=== PATIENT | female | born 1940 | race Caucasian/White ===

== ENCOUNTER 2016-10-17 04:56 | Emergency (ER) | payer OTHER, MEDICARE ==
[~2016-10-17] VITALS: Ht 152.4 cm; Wt 59.0 kg
[~2016-10-17 04:56] MED LIST: Ecotrin PO; FOSAMAX 70MG70 MG PO; NITROSTAT0.4 MG SL; Robitussin Dm PO; TENORMIN25 MG PO; VITAMIN D 90 MG1 TAB PO
--- NOTE | 2016-10-17 05:10 | ED CARDIAC/CP/PALPITATIONS ---
See Addendum History of Present Illness General Chief Complaint: Chest Pain Stated Complaint: BIBA C/O CHEST PAIN Source: patient Exam Limitations: no limitations Vital Signs & Intake/Output Vital Signs & Intake/Output Vital Signs Date Time Temp Pulse Resp B/P B/P Pulse O2 O2 Flow FiO2 Mean Ox Delivery Rate 10/17 0806 97.5 59 18 126/71 94 Room Air 10/17 0602 62 16 125/75 98 Room Air Room Air 10/17 0459 97.9 71 17 165/75 100 Allergies Coded Allergies: NO KNOWN ALLERGIES (03/11/14) Reconcile Medications Alendronate Sodium (Fosamax 70MG) 70 MG TAB 1 TAB PO QW DIRECTED (Reported ) in the morning, at least 30 minutes before the first food, beverage, or medication of the day Atenolol (Tenormin) 25 MG TABLET 1 TAB PO DAILY HTN (Reported) CHOLECALCIFEROL (VITAMIN D3) (Vitamin D 90 MG-2000 Iu) 2,000 UNIT TABLET 1 TAB PO DAILY VITAMIN HEALTH (Reported) [Ecotrin] 81 MG PO DAILY HEART HEALTH Nitroglycerin (Nitrostat) 0.4 MG TAB.SUBL 1 TAB SL Q5 MINUTESX2 PRN CHEST PAIN PUT 1 TAB UNDER YOUR TONGUE. IF CHEST PAIN DOESN'T RESOLVE AFTER 5 MINUTES USE ANOTHER TAB. THEN CALL HOSPITAL. Triage Nurses Notes Reviewed? yes Onset: Gradual Duration: hour(s): Timing: recent history Quality/Severity: moderate Location: central Radiation: no radiation Activities at Onset: none Prior Chest Pain/Card Workup: stress test Modifying Factors: Improves With: nitroglycerin. Nitro Today/Relief: 0.4 mg x 1, provided at home, complete relief Aspirin Today: no aspirin today Associated Symptoms: chest pressure, rash HPI: 76 yo woman h/o coronary artery disease (no [place]), h/o anxiety, presents with chest pressure. She notes that she felt sub sternal chest pressure, without diaphoresis, radiation, or syncopal symptoms approximately 1 hour prior to presentation. She took a nitro x 1 which resulted in complete symptoms. She presently feels like the discomfort is returning, is presently 6/10. (ABRAHAN SOTO,CONCHA Heath) Past History Medical History Any Pertinent Medical History? see below for history Cardiovascular: CAD History of MRSA: No History of VRE: No History of CDIFF: No Surgical History Surgical History: non-contributory Psychosocial History Who do you live with Spouse Services at Home None What is your primary language Cuban Family History Hx Contributory? No (ABRAHAN SOTO,CONCHA Heath) Review of Systems Review of Systems Constitutional: Reports: no symptoms. EENTM: Reports: no symptoms. Respiratory: Reports: no symptoms. Cardiovascular: Reports: no symptoms. GI: Reports: no symptoms. Genitourinary: Reports: no symptoms. Musculoskeletal: Reports: no symptoms. Skin: Reports: no symptoms. Neurological/Psychological: Reports: no symptoms. Hematologic/Endocrine: Reports: no symptoms. Immunologic/Allergic: Reports: no symptoms. All Other Systems: Reviewed and Negative (CONCHA GAUTHIER MD) Physical Exam Physical Exam General Appearance: well developed/nourished, mild distress Head: atraumatic, normal appearance Eyes: Bilateral: normal appearance. Ears, Nose, Throat: normal pharynx, normal ENT inspection Neck: normal inspection, supple, full range of motion Respiratory: normal breath sounds, no respiratory distress, quiet respiration, lungs clear, left parasternal chest wall tenderness to palpation. Cardiovascular: regular rate/rhythm Gastrointestinal: normal bowel sounds, soft, non-tender, no organomegaly Back: normal inspection Extremities: normal inspection, normal capillary refill, normal range of motion, no edema Neurologic/Psych: no motor/sensory deficits, awake, alert, oriented x 3 Skin: intact, normal color, warm/dry Core Measures ACS in differential dx? Yes ASA ordered for poss ACS? Yes-ordered Severe Sepsis Present: Yes Septic Shock Present: Yes (ABRAHAN SOTO,CONCHA Heath) Progress Differential Diagnosis: AMI, unstable angina Plan of Care: Orders Procedure Date/time Status Heart Healthy Diet 10/17 B Active TROPONIN LEVEL 10/17 09 Complete TROPONIN LEVEL 10/17 050 Complete PARTIAL THROMBOPLASTIN TIME 10/17 0507 Complete PROTHROMBIN TIME 10/17 0507 Complete D-DIMER 10/17 0507 Complete COMPREHENSIVE METABOLIC PANEL 10/17 0507 Complete CBC WITHOUT DIFFERENTIAL 10/17 0507 Complete B-TYPE NATRIURETIC PEP (BNP) 10/17 050 Complete EKG 10/17 0503 Active Laboratory Tests 10/17/16 0914: Troponin I < 0.01 10/17/16 0507: Anion Gap 8, Estimated GFR > 60, BUN/Creatinine Ratio 17.1, Glucose 103 H, Calcium 9.8, Total Bilirubin 1.0, AST 24, ALT 37, Alkaline Phosphatase 60, Troponin I < 0.01, Typ-F-Rcustzziztc Pept 292 H, Total Protein 6.9, Albumin 4.0 , Globulin 2.9, Albumin/Globulin Ratio 1.4, PT 10.8, INR 1.03, APTT 32, D-Dimer High Sensitivty 726 H, CBC w Diff NO MAN DIFF REQ, RBC 4.29, MCV 89.1, MCH 30.1 , RDW 12.2, MPV 8.2, Gran % 63.6, Lymphocytes % 26.0, Monocytes % 8.0, Eosinophils % 1.8, Basophils % 0.6, Absolute Granulocytes 4.8, Absolute Lymphocytes 2.0, Absolute Monocytes 0.6, Absolute Eosinophils 0.1, Absolute Basophils 0, PUBS MCHC 33.8 Diagnostic Imaging: Viewed by Me: Radiology Read. Discussed w/RAD: Radiology Read. CXR Impression: ATELECTASIS VS PNEUMONIA Initial ED EKG: normal axis, normal intervals, normal p-waves, normal QRS complex, normal sinus rhythm Hand-Off Endorsed To: LILY WHITE MD Endorsed Time: 0700 Pending: CT, labs Comments: PATIENT: ADRIA CARDONA PRESENT AGE: 76 PATIENT ACCOUNT NO: [id number] : 39 LOCATION: [facility] ORDERING PHYSICIAN: CONCHA GAUTHIER MD SERVICE DATE: 10/17/16 EXAM TYPE: RAD - XRY-PORTABLE CHEST XRAY EXAMINATION: XR PORTABLE CHEST CLINICAL INFORMATION: Chest pain COMPARISON: 03/11/2014 TECHNIQUE: Portable frontal view of the chest was obtained. FINDINGS: Low lung volumes. Increased patchy basilar opacities. No pleural effusion or pneumothorax. The cardiomediastinal silhouette is within normal limits. No acute osseous abnormality. IMPRESSION: Hypoexpanded lungs with increased patchy basilar opacities which may represent atelectasis or pneumonia. DICTATED BY: ALLIE MONTEJO MD DATE/TIME DICTATED:10/17/16535 MECHANICAL MANUFACTURING TECHNICIAN:ROBERT DATE/TIME TRANSCRIBED:10/17/16535 CONFIDENTIAL, DO NOT COPY WITHOUT APPROPRIATE AUTHORIZATION. <Electronically signed in Other Vendor System> SIGNED BY: ALLIE MONTEJO MD 10/17 (CONCHA GAUTHIER MD) Radiology Impression: Limited study but without evidence of central pulmonary artery emboli. No evidence of thoracic aortic aneurysm or dissection. Mosaic attenuation which may be related to small airways disease with air trapping or differential perfusion. (LILY WHITE MD) Departure Departure Condition: Stable Departure Forms: Customer Survey General Discharge Information (CONCHA GAUTHIER MD) Departure Time of Disposition: 1017 Disposition: HOME OR SELF CARE Clinical Impression Primary Impression: Chest pain Qualifiers: Chest pain type: unspecified Qualified Code: R07.9 - Chest pain, unspecified Referrals: JUSTIN SOTO,LAKSHMI Sanchez (PCP/Family) NIKOLAI SOTO,TIERRA Heath Prescriptions: Current Visit Scripts Amoxicillin 1 TAB PO BID #20 TAB Albuterol Sulfate (Proair Hfa) 2-4 PUF INH Q4-6 PRN PRN shortness of breath #1 INHAL (LILY WHITE MD) Critical Care Note Critical Care Note Critical Care Time: non-applicable (CONCHA GAUTHIER MD)
[2016-10-17 05:22] LABS: ABSOLUTE BASOPHIL COUNT 0 /CUMM (0.0-0.2); ABSOLUTE EOSINOPHIL COUNT 0.1 /CUMM (0.0-0.7); ABSOLUTE GRANULOCYTE CT 4.8 /CUMM (1.4-6.5); ABSOLUTE MONOCYTE COUNT 0.6 /CUMM (0.10-0.60); BASOPHIL % 0.6 % (0.0-2.0); EOSINOPHIL % 1.8 % (0-5); GRANULOCYTE % 63.6 % (42.2-75.2); HEMATOCRIT 38.2 % (37-47); MEAN CORPUSCULAR HGB 30.1 PG (27.0-31.0); MEAN CORPUSCULAR HGB CONC 33.8 G/DL (33.0-37.0); MEAN CORPUSCULAR VOLUME 89.1 FL (81.0-99.0); MEAN PLATELET VOLUME 8.2 FL (7.4-10.4); PLATELET COUNT 201 /CUMM (130-400); RBC DISTRIBUTION WIDTH 12.2 % (11.5-14.5); RED BLOOD CELL CT 4.29 /CUMM (4.20-5.40); WHITE BLOOD CELL COUNT 7.5 /CUMM (4.8-10.8)
--- NOTE | 2016-10-17 05:40 | RADIOLOGY REPORT ---
EXAMINATION: XR PORTABLE CHEST CLINICAL INFORMATION: Chest pain COMPARISON: 03/11/2014 TECHNIQUE: Portable frontal view of the chest was obtained. FINDINGS: Low lung volumes. Increased patchy basilar opacities. No pleural effusion or pneumothorax. The cardiomediastinal silhouette is within normal limits. No acute osseous abnormality. IMPRESSION: Hypoexpanded lungs with increased patchy basilar opacities which may represent atelectasis or pneumonia.
[2016-10-17 05:59] LABS: PT 10.8 SEC (9.4-12.5); PTT 32 SEC (25-37)
--- NOTE | 2016-10-17 08:42 | CT SCAN REPORT ---
EXAMINATION: CT ANGIOGRAM OF THE CHEST WITH AND WITHOUT CONTRAST (CT PULMONARY ANGIOGRAM FOR PE) CLINICAL INFORMATION: Reason for Study:
Presumptive Dx: chest pain
Signs Symptoms: chest pain, +dimer
COMPARISON: March 12, 2014 TECHNIQUE: Prior to contrast administration, noncontrast localization images were obtained. Subsequently, multidetector volumetric imaging was performed from the thoracic inlet to below the diaphragms following the administration of 94 mL Omnipaque 350 intravenous contrast. No contrast reaction reported. Sagittal, coronal, and MIP oblique sagittal reformatted images were obtained on the CT workstation, uploaded to PACS, and reviewed. Total exam dose-length product 299.12 mGy-cm. FINDINGS: There is motion artifact present within the lower lobes making evaluation of peripheral pulmonary artery emboli impossible. PULMONARY ARTERIES: No central pulmonary emboli. THORACIC AORTA: No aneurysm or dissection. LUNG: There is a left upper lung bulla. There are subpleural blebs present bilaterally. There is diffuse mosaic attenuation which may be related to lower airways disease or perfusion differences. Minor bibasilar atelectatic change seen without airspace consolidation. PLEURA: No pleural effusion or pneumothorax. MEDIASTINUM: Normal heart size. No pericardial effusion. No mediastinal lymphadenopathy. There is interstitial hilar prominence without definite lymphadenopathy. No evidence of septal bowing or right heart strain. CHEST WALL/AXILLA: No axillary or internal mammary lymphadenopathy. OSSEOUS STRUCTURES: No acute or suspicious osseous abnormality. Multilevel degenerative disc disease is present. Bilateral shoulder degenerative changes seen with glenohumeral spurring and AC joint narrowing and spurring. UPPER ABDOMEN: Previously noted 5.0 x 3.8 cm hepatic cyst. No adrenal masses. IMPRESSION: Limited study but without evidence of central pulmonary artery emboli. No evidence of thoracic aortic aneurysm or dissection. Mosaic attenuation which may be related to small airways disease with air trapping or differential perfusion.
[2016-10-17] MEDS ORDERED: AMOXICILLIN875 M1 PO (10:19)
[2016-10-17] MEDS ORDERED: PROAIR HFA8.5 GM INH (10:19)
[2016-10-17 10:25] VITALS: BP 153/72
== END 2016-10-17 10:36 ==
LOC: ERH 04:56
PROVIDERS: Pediatrics
DX: R07.2 Precordial pain (principal); R21 Rash and other nonspecific skin eruption
CPT/HCPCS: 93005; 93010; 96374; J1200